=== PATIENT | female | born 1950 | race African-American/Black ===

== ENCOUNTER 2024-11-20 17:31 | Inpatient (IN) | payer BC, MEDICAID, MEDICARE ==
[~2024-11-20] VITALS: Ht 167.6 cm; Wt 146.1 kg
[2024-11-20 19:40] LABS: BASOPHILS % 0.6 % (0.0-2.0); EOSINOPHILS % 5.7 % (0.0-5.0); HEMATOCRIT. 36.9 % (36.0-48.0); HEMOGLOBIN. 10.6 g/dL (12.0-16.0); LYMPHOCYTES % 16.9 % (20.0-50.0); MEAN PLATELET VOLUME 8.1 fl (7.4-10.4); MONOCYTES % 3.5 % (2.0-8.0); NEUTROPHILS % 73.3 % (40.0-76.0); PLATELET 346 x1000/uL (130-400); RED BLOOD CELL COUNT 4.48 mill/uL (4.2-5.4); RED CELL DISTRIBUTION WIDTH 22.7 % (11.6-14.6)
[2024-11-20 19:43] LABS: ADD RBC MORPHOLOGY YES
[2024-11-20 19:49] LABS: INR 1.0
[2024-11-20 19:54] LABS: CREATININE 1.0 mg/dL (0.6-1.0)
[2024-11-20 19:55] LABS: UREA NITROGEN BLOOD 20 mg/dL (9-23)
[2024-11-20 19:56] LABS: ASPARTATE AMINOTRANSFERASE 16 IU/L (<34); BILIRUBIN DIRECT 0.1 mg/dL (<=3.0); TROPONIN I HIGH SENSITIVITY 17 ng/L (3.0-34)
[2024-11-20 19:57] LABS: BILIRUBIN TOTAL 0.4 mg/dL (0.1-1.0); PROTEIN TOTAL 6.4 g/dL (6.0-8.3)
[2024-11-20 20:00] LABS: PLATELET ESTIMATE NORMAL
[2024-11-20] MEDS: CEFTRIAXONE 1GM/50ML 50 ML IV ONE (20:00)
[2024-11-20] MEDS: AZITHROMYCIN 500MG/250ML 250 ML IV SCH (20:00)
[2024-11-20] MEDS ORDERED: AZITHROMYCIN 500MG/250ML 250 ML IV SCH (20:00)
[2024-11-20] MEDS: AZITHROMYCIN 500 MG TABLET PO ONE (23:22)
[2024-11-20] MEDS: CEFTRIAXONE SODIUM 1G VIAL IM ONE (23:22)
[2024-11-21] VITALS (9 sets, daily range): BP systolic 100–129; BP diastolic 33–53; PULSE 62–88; RESP 16–20; TEMP 36.2–36.8; O2SAT 98–100
[2024-11-21] MEDS ORDERED: ONDANSETRON HCL 4MG/2ML INJ IV PRN
[2024-11-21] MEDS ORDERED: MAGNESIUM/ALUMINUM HYDROXIDE/SIMETHICONE 30ML UDC PO PRN
[2024-11-21] MEDS: SODIUM CHLORIDE 0.9% 1,000 ML IV SCH
[2024-11-21] MEDS ORDERED: HYDROCODONE/ACETAMINOPHEN 5/325MG TABLET PO PRN
[2024-11-21] MEDS ORDERED: ZOLPIDEM TARTRATE 5MG TABLET PO PRN
[2024-11-21] MEDS ORDERED: GUAIFENESIN 200MG/10ML SUGAR FREE UDC PO PRN
[2024-11-21] MEDS ORDERED: NALOXONE HCL 0.4MG/ML VIAL IV PRN (00:30)
[2024-11-21] MEDS: LEVOFLOXACIN 750MG PREMIX 150 ML IV SCH ×2 (02:00→15:00)
[2024-11-21 04:56] LABS: *AMPHETAMINES SCREEN URINE NEGATIVE (NEGATIVE); *BARBITURATES SCREEN URINE NEGATIVE (NEGATIVE); *BENZODIAZEPINES SCREEN URINE NEGATIVE (NEGATIVE); *COCAINE SCREEN URINE NEGATIVE (NEGATIVE); CANNABINOID URINE SCREEN NEGATIVE (NEGATIVE); ECSTASY MDMA SCREEN URINE NEGATIVE (NEGATIVE); METHADONE URINE SCREEN NEGATIVE (NEGATIVE); OPIATES URINE SCREEN NEGATIVE (NEGATIVE); PHENCYCLIDINE URINE SCREEN NEGATIVE (NEGATIVE)
[2024-11-21 04:59] LABS: CLARITY URINE TURBID (CLEAR); COLOR URINE ORANGE (YELLOW)
[2024-11-21 05:00] LABS: GLUCOSE URINE NEGATIVE (NEGATIVE); KETONES URINE NEGATIVE (NEGATIVE); LEUKOCYTE ESTERASE URINE 3+ (NEGATIVE); NITRITE URINE NEGATIVE (NEGATIVE); OCCULT BLOOD URINE 2+ (NEGATIVE); PH URINE >=9.0 (4.5-8.0); PROTEIN URINE 2+ (NEGATIVE); SPECIFIC GRAVITY URINE 1.013 (1.005-1.030); UROBILINOGEN URINE 0.2 E.U./dL (0.2-1.0)
[2024-11-21] MEDS ORDERED: AMLO10TA80 PO (05:01)
[2024-11-21] MEDS ORDERED: HYDR25TA78 PO (05:01)
[2024-11-21] MEDS ORDERED: LASIX PO (05:01)
[2024-11-21 05:08] LABS: SQUAMOUS EPITHELIAL CELL URINE 3+ /lpf (RARE/1+)
[2024-11-21 05:10] LABS: BACTERIA URINE 4+; TRIPLE PHOSPHATE CRYSTAL URINE 2+ /lpf
[2024-11-21 07:07] LABS: TROPONIN I HIGH SENSITIVITY 16 ng/L (3.0-34)
[2024-11-21] MEDS: IPRATROPIUM/ALBUTEROL 0.5-3(2.5)MG/3ML NEB NEB SCH (10:28)
[2024-11-21] MEDS: LIDOCAINE HCL 1% 10 MG/ML 10ML VIAL ONE (10:37)
[2024-11-21] MEDS: ACETAMINOPHEN 325MG TABLET PO PRN (10:38)
[2024-11-21] MEDS: ENOXAPARIN 40MG/0.4ML SYR SUBCUT SCH (10:41)
[2024-11-21] MEDS: PANTOPRAZOLE SODIUM 40 MG/VIAL IV SCH (10:46)
[2024-11-21] MEDS: DEXTROSE 50% WATER 50ML SYRINGE IV ONE (14:31)
[2024-11-21] MEDS: DEXTROSE 50% WATER 50ML SYRINGE IV SCH (14:45)
[2024-11-21] MEDS: FUROSEMIDE 40MG/4ML VIAL IVP SCH (15:06)
[2024-11-21 16:07] LABS: BG BASE EXCESS 1.3 mmol/L (-2.0-3.0); BG CARBOXYHEMOGLOBIN 1.0 % (0.5-1.5); BG DEOXYHEMOGLOBIN 7.0 % (0.0-5.0); BG FLOW(L/min) 2.00 L/min; BG FRACTION INSPIRED OXYGEN 28; BG HCO3 ACT 31.0 mmol/L (21.0-28.0); BG METHEMOGLOBIN 0.3 % (0.5-1.5); BG OXYGEN SATURATION 92.9 % (94.0-98.0); BG OXYHEMOGLOBIN 91.7 % (94.0-98.0); BG PCO2 82.1 mmHg (32.0-45.0); BG PH 7.195 (7.350-7.450); BG PO2 70.0 mmHg (83.0-108.0); BG SAMPLE SITE RIGHT BRACHIAL; BG TOTAL HEMOGLOBIN 10.7 g/dL (12.0-16.0); BG VENT MODE NASAL CANNULA
[2024-11-21] MEDS: METHYLPREDNISOLONE SOD SUCC 40MG/ML (ACT-O-VIAL) IV SCH (17:16)
[2024-11-21 19:07] LABS: TROPONIN I HIGH SENSITIVITY 15 ng/L (3.0-34)
[2024-11-22] VITALS (11 sets, daily range): BP systolic 125–197; BP diastolic 33–48; PULSE 70–94; RESP 16–20; TEMP 36–37; O2SAT 88–99
[2024-11-22 12:52] LABS: PLATELET 339 x1000/uL (130-400); RED BLOOD CELL COUNT 4.02 mill/uL (4.2-5.4); RED CELL DISTRIBUTION WIDTH 21.6 % (11.6-14.6)
[2024-11-22 13:11] LABS: CREATININE 1.1 mg/dL (0.6-1.0); UREA NITROGEN BLOOD 30.0 mg/dL (9-23)
[2024-11-22 22:19] LABS: HEMATOCRIT. 30.5 % (36.0-48.0); HEMOGLOBIN. 9.2 g/dL (12.0-16.0); MEAN PLATELET VOLUME 8.1 fl (7.4-10.4); PLATELET 356 x1000/uL (130-400); RED BLOOD CELL COUNT 3.90 mill/uL (4.2-5.4); RED CELL DISTRIBUTION WIDTH 22.0 % (11.6-14.6)
[2024-11-22 22:28] LABS: INR 1.0
[2024-11-22 22:35] LABS: CREATININE 1.1 mg/dL (0.6-1.0); UREA NITROGEN BLOOD 29 mg/dL (9-23)
[2024-11-22 22:37] LABS: BILIRUBIN DIRECT < 0.1 mg/dL (<=3.0)
[2024-11-22 22:38] LABS: BILIRUBIN TOTAL 0.3 mg/dL (0.1-1.0); PHOSPHORUS 2.6 mg/dL (2.5-4.9); PROTEIN TOTAL 5.5 g/dL (6.0-8.3)
[2024-11-22 22:44] LABS: LYMPHOCYTES % MANUAL 10.0 % (20.0-60.0); MONOCYTES % MANUAL 1.0 % (2.0-8.0); NEUTROPHILS % MANUAL 89.0 % (45.0-75.0); PLATELET ESTIMATE NORMAL
[2024-11-22 22:46] LABS: ASPARTATE AMINOTRANSFERASE < 8 IU/L (<34)
[2024-11-23] VITALS (10 sets, daily range): BP systolic 127–184; BP diastolic 33–53; PULSE 74–92; RESP 16–20; TEMP 36.3–36.6; O2SAT 94–100
[2024-11-23] MEDS: CLONIDINE 0.1MG TABLET PO PRN (05:14)
[2024-11-23] MEDS: LEVOFLOXACIN 250MG TABLET PO SCH (11:30)
[2024-11-23 18:02] LABS: HEMATOCRIT. 30.8 % (36.0-48.0); HEMOGLOBIN. 9.4 g/dL (12.0-16.0); MEAN PLATELET VOLUME 7.9 fl (7.4-10.4); PLATELET 342 x1000/uL (130-400); RED BLOOD CELL COUNT 3.90 mill/uL (4.2-5.4); RED CELL DISTRIBUTION WIDTH 22.2 % (11.6-14.6)
[2024-11-23 18:05] LABS: CREATININE 1.1 mg/dL (0.6-1.0)
[2024-11-23 18:06] LABS: UREA NITROGEN BLOOD 31.0 mg/dL (9-23)
[2024-11-23 22:24] LABS: LYMPHOCYTES % MANUAL 7.0 % (20.0-60.0); MONOCYTES % MANUAL 4.0 % (2.0-8.0); NEUTROPHILS % MANUAL 89.0 % (45.0-75.0); PLATELET ESTIMATE NORMAL
[2024-11-24] VITALS (10 sets, daily range): BP systolic 116–149; BP diastolic 24–61; PULSE 74–90; RESP 15–21; TEMP 36.1–36.9; O2SAT 92–99
[2024-11-24 11:00] LABS: BG BASE EXCESS 2.5 mmol/L (-2.0-3.0); BG CARBOXYHEMOGLOBIN 0.6 % (0.5-1.5); BG DEOXYHEMOGLOBIN 3.2 % (0.0-5.0); BG FLOW(L/min) 2.00 L/min; BG FRACTION INSPIRED OXYGEN 28; BG HCO3 ACT 29.8 mmol/L (21.0-28.0); BG METHEMOGLOBIN 0.3 % (0.5-1.5); BG OXYGEN SATURATION 96.8 % (94.0-98.0); BG OXYHEMOGLOBIN 95.9 % (94.0-98.0); BG PCO2 60.8 mmHg (32.0-45.0); BG PH 7.308 (7.350-7.450); BG PO2 88.5 mmHg (83.0-108.0); BG SAMPLE SITE RIGHT RADIAL; BG TOTAL HEMOGLOBIN 10.5 g/dL (12.0-16.0); BG VENT MODE NASAL CANNULA
[2024-11-24 17:17] LABS: HEMATOCRIT. 30.7 % (36.0-48.0); HEMOGLOBIN. 9.2 g/dL (12.0-16.0); MEAN PLATELET VOLUME 7.9 fl (7.4-10.4); PLATELET 318 x1000/uL (130-400); RED BLOOD CELL COUNT 3.89 mill/uL (4.2-5.4); RED CELL DISTRIBUTION WIDTH 21.8 % (11.6-14.6)
[2024-11-24 17:38] LABS: CREATININE 1.3 mg/dL (0.6-1.0); UREA NITROGEN BLOOD 37 mg/dL (9-23)
[2024-11-24 17:40] LABS: ASPARTATE AMINOTRANSFERASE 8 IU/L (<34); BILIRUBIN TOTAL 0.2 mg/dL (0.1-1.0); PROTEIN TOTAL 5.4 g/dL (6.0-8.3)
[2024-11-24 18:07] LABS: LYMPHOCYTES % MANUAL 4.0 % (20.0-60.0); MONOCYTES % MANUAL 4.0 % (2.0-8.0); NEUTROPHILS % MANUAL 92.0 % (45.0-75.0); PLATELET ESTIMATE NORMAL
[2024-11-25] VITALS (11 sets, daily range): BP systolic 130–164; BP diastolic 33–80; PULSE 70–91; RESP 18–20; TEMP 36.4–37.1; O2SAT 95–98
[2024-11-25 08:26] LABS: HEMATOCRIT. 30.8 % (36.0-48.0); HEMOGLOBIN. 9.4 g/dL (12.0-16.0); MEAN PLATELET VOLUME 8.0 fl (7.4-10.4); PLATELET 282 x1000/uL (130-400); RED BLOOD CELL COUNT 3.90 mill/uL (4.2-5.4); RED CELL DISTRIBUTION WIDTH 22.0 % (11.6-14.6)
[2024-11-25 08:48] LABS: CREATININE 1.2 mg/dL (0.6-1.0)
[2024-11-25 08:49] LABS: UREA NITROGEN BLOOD 41.0 mg/dL (9-23)
[2024-11-25 09:53] LABS: BG BASE EXCESS 4.4 mmol/L (-2.0-3.0); BG CARBOXYHEMOGLOBIN 0.7 % (0.5-1.5); BG DEOXYHEMOGLOBIN 3.1 % (0.0-5.0); BG FLOW(L/min) 3.00 L/min; BG FRACTION INSPIRED OXYGEN 32; BG HCO3 ACT 33.1 mmol/L (21.0-28.0); BG METHEMOGLOBIN 0.3 % (0.5-1.5); BG OXYGEN SATURATION 96.9 % (94.0-98.0); BG OXYHEMOGLOBIN 95.9 % (94.0-98.0); BG PCO2 73.3 mmHg (32.0-45.0); BG PH 7.272 (7.350-7.450); BG PO2 89.2 mmHg (83.0-108.0); BG SAMPLE SITE LEFT RADIAL; BG TOTAL HEMOGLOBIN 11.0 g/dL (12.0-16.0); BG VENT MODE NASAL CANNULA
[2024-11-25] MEDS: FUROSEMIDE 40MG/4ML VIAL IVP SCH (10:41)
[2024-11-25 14:28] LABS: BAND% 2.0 % (1.0-6.0); LYMPHOCYTES % MANUAL 8.0 % (20.0-60.0); MONOCYTES % MANUAL 4.0 % (2.0-8.0); NEUTROPHILS % MANUAL 86.0 % (45.0-75.0); PLATELET ESTIMATE NORMAL
[2024-11-26] VITALS (8 sets, daily range): BP systolic 135–156; BP diastolic 30–42; PULSE 76–98; RESP 18–20; TEMP 36.1–37.1; O2SAT 96–100
[2024-11-26 07:50] LABS: HEMATOCRIT. 31.8 % (36.0-48.0); HEMOGLOBIN. 9.5 g/dL (12.0-16.0); MEAN PLATELET VOLUME 8.1 fl (7.4-10.4); PLATELET 289 x1000/uL (130-400); RED BLOOD CELL COUNT 3.97 mill/uL (4.2-5.4); RED CELL DISTRIBUTION WIDTH 21.9 % (11.6-14.6)
[2024-11-26 07:54] LABS: CREATININE 1.1 mg/dL (0.6-1.0); UREA NITROGEN BLOOD 40.0 mg/dL (9-23)
[2024-11-26 08:53] LABS: BG BASE EXCESS 1.8 mmol/L (-2.0-3.0); BG CARBOXYHEMOGLOBIN 0.4 % (0.5-1.5); BG DEOXYHEMOGLOBIN 3.2 % (0.0-5.0); BG FLOW(L/min) 3.00 L/min; BG FRACTION INSPIRED OXYGEN 32; BG HCO3 ACT 28.5 mmol/L (21.0-28.0); BG METHEMOGLOBIN 0.3 % (0.5-1.5); BG OXYGEN SATURATION 96.8 % (94.0-98.0); BG OXYHEMOGLOBIN 96.1 % (94.0-98.0); BG PCO2 55.3 mmHg (32.0-45.0); BG PH 7.330 (7.350-7.450); BG PO2 87.5 mmHg (83.0-108.0); BG SAMPLE SITE LEFT RADIAL; BG TOTAL HEMOGLOBIN 10.6 g/dL (12.0-16.0); BG VENT MODE NASAL CANNULA
[2024-11-26 14:17] LABS: BAND% 3.0 % (1.0-6.0); LYMPHOCYTES % MANUAL 10.0 % (20.0-60.0); MONOCYTES % MANUAL 3.0 % (2.0-8.0); NEUTROPHILS % MANUAL 84.0 % (45.0-75.0); PLATELET ESTIMATE NORMAL
[2024-11-26] MEDS: PNEUMOCOCCAL 20-VAL CONJ-DIP CRM 0.5ML IM ONE (16:41)
[2024-11-27] VITALS (7 sets, daily range): BP systolic 144–167; BP diastolic 36–57; PULSE 75–80; RESP 18–20; TEMP 36–37.1; O2SAT 95–98
[2024-11-28] VITALS (7 sets, daily range): BP systolic 140–166; BP diastolic 44–62; PULSE 71–85; RESP 18–20; TEMP 35.9–37; O2SAT 97–100
[2024-11-28] MEDS: MULTIVITAMINS,THER W-MINERALS TABLET PO SCH (08:58)
[2024-11-28 09:59] LABS: BG SAMPLE SITE LEFT RADIAL
[2024-11-28 10:00] LABS: BG FRACTION INSPIRED OXYGEN 32; BG VENT MODE CANNULA
[2024-11-28 10:01] LABS: BG BASE EXCESS 1.8 mmol/L (-2.0-3.0); BG HCO3 ACT 31.4 mmol/L (21.0-28.0); BG OXYGEN SATURATION 95.1 % (94.0-98.0); BG PCO2 79.5 mmHg (32.0-45.0); BG PH 7.215 (7.350-7.450); BG PO2 76.6 mmHg (83.0-108.0); BG TOTAL HEMOGLOBIN 11.6 g/dL (12.0-16.0)
[2024-11-28 10:02] LABS: BG CARBOXYHEMOGLOBIN 0.6 % (0.5-1.5); BG DEOXYHEMOGLOBIN 4.9 % (0.0-5.0); BG METHEMOGLOBIN 0.0 % (0.5-1.5); BG OXYHEMOGLOBIN 94.5 % (94.0-98.0)
[2024-11-28 14:59] LABS: BG FLOW(L/min) 3.00 L/min
[2024-11-29] VITALS (7 sets, daily range): BP systolic 139–185; BP diastolic 38–46; PULSE 76–91; RESP 17–20; TEMP 36.3–37.1; O2SAT 95–99
[2024-11-30] VITALS (7 sets, daily range): BP systolic 132–177; BP diastolic 27–51; PULSE 75–86; RESP 17–20; TEMP 35.6–36.9; O2SAT 96–100
[2024-11-30] MEDS: HYDRALAZINE 10 MG in SODIUM CHLORIDE 0.9% 49.5 ML IV PRN (00:50)
[2024-12-01] VITALS: BP 197/57; PULSE 87; RESP 20; TEMP 36.2; O2SAT 97
[2024-12-01 04:00] VITALS: BP 136/52; PULSE 85; RESP 20; TEMP 36.4; O2SAT 99
[2024-12-01 08:00] VITALS: BP 193/54; PULSE 86; RESP 18; TEMP 36.9; O2SAT 99
[2024-12-01 12:00] VITALS: BP 186/46; PULSE 78; RESP 17; TEMP 36.5; O2SAT 99
[2024-12-01 18:05] VITALS: BP 175/49; PULSE 78; RESP 18; TEMP 36.6; O2SAT 97
[2024-12-01 20:00] VITALS: BP 186/54; PULSE 78; RESP 18; TEMP 36.2; O2SAT 100
[2024-12-02] VITALS: BP 118/64; PULSE 82; RESP 20; TEMP 35.9; O2SAT 100
[2024-12-02 04:00] VITALS: BP 158/45; PULSE 76; RESP 20; TEMP 36.6; O2SAT 100
[2024-12-02 08:00] VITALS: BP 165/52; PULSE 70; RESP 18; TEMP 36.3; O2SAT 100
[2024-12-02 12:00] VITALS: BP 141/69; PULSE 67; RESP 18; TEMP 36.4; O2SAT 100
[2024-12-02 16:00] VITALS: BP 169/54; PULSE 72; RESP 18; TEMP 36.4; O2SAT 98
[2024-12-03] VITALS: BP 165/45; PULSE 81; RESP 20; TEMP 35.8; O2SAT 99
[2024-12-03 04:00] VITALS: BP 183/50; PULSE 77; RESP 19; TEMP 35.6; O2SAT 100
[2024-12-03 08:00] VITALS: BP 127/54; PULSE 83; RESP 18; TEMP 35.8; O2SAT 100
[2024-12-03 12:00] VITALS: BP 135/60; PULSE 80; RESP 18; TEMP 35.7; O2SAT 100
[2024-12-03 16:00] VITALS: BP 140/65; PULSE 79; RESP 18; TEMP 35.8; O2SAT 100
[2024-12-03 20:00] VITALS: BP 168/55; PULSE 83; RESP 18; TEMP 36.7; O2SAT 98
[2024-12-04] VITALS: BP 169/54; PULSE 78; RESP 18; TEMP 36.9; O2SAT 98
[2024-12-04] MEDS: CLONIDINE 0.1MG TABLET PO NR (03:07)
[2024-12-04 04:00] VITALS: BP 172/67; PULSE 81; RESP 18; TEMP 37.1; O2SAT 99
[2024-12-04 08:00] VITALS: BP 101/50; PULSE 69; RESP 18; TEMP 36.5; O2SAT 98
[2024-12-04 12:00] VITALS: BP 146/41; PULSE 68; RESP 18; TEMP 36.4; O2SAT 97
[2024-12-04 16:00] VITALS: BP 165/38; PULSE 66; RESP 20; TEMP 35.9; O2SAT 98
[2024-12-04 20:00] VITALS: BP 158/66; PULSE 58; RESP 19; TEMP 35.7; O2SAT 100
[2024-12-05] VITALS: BP 141/48; PULSE 74; RESP 19; TEMP 36.6; O2SAT 100
[2024-12-05 04:00] VITALS: BP 149/48; PULSE 75; RESP 19; TEMP 36.5; O2SAT 100
[2024-12-05 08:00] VITALS: BP 174/46; PULSE 71; RESP 19; TEMP 36.6; O2SAT 95
[2024-12-05 12:00] VITALS: BP 168/49; PULSE 70; RESP 18; TEMP 36.4; O2SAT 99
[2024-12-05 16:00] VITALS: BP 168/48; PULSE 72; RESP 19; TEMP 36.1; O2SAT 97
[2024-12-06] VITALS: BP 165/51; PULSE 76; RESP 20; TEMP 36.5; O2SAT 99
[2024-12-06 04:00] VITALS: BP 172/46; PULSE 87; RESP 20; TEMP 36; O2SAT 99
[2024-12-06 08:00] VITALS: BP 147/40; PULSE 69; RESP 17; TEMP 36.9; O2SAT 95
[2024-12-06 12:00] VITALS: BP 149/47; PULSE 69; RESP 17; TEMP 36.9; O2SAT 96
[2024-12-06 16:00] VITALS: BP 165/41; PULSE 80; RESP 18; TEMP 36.9
[2024-12-06 20:00] VITALS: BP 143/40; PULSE 75; RESP 18; TEMP 36.2; O2SAT 100
[2024-12-07] VITALS (7 sets, daily range): BP systolic 153–169; BP diastolic 41–48; PULSE 65–85; RESP 17–18; TEMP 36.2–36.7; O2SAT 95–100
== END 2024-12-07 23:37 | disposition home health service (06) | DRG 291 ==
LOC: ER 17:31 → 7WST 20:52 → EDBEDREQTM 21:07 → EDBEDREQ 21:07 → ENRESERV 21:51 → 7EST 11-29 19:55
PROVIDERS: ADMIT Internal Medicine; ATTEND Internal Medicine
PROC: 5A0935A Assistance with Respiratory Ventilation, Less than 24 Consecutive Hours, High Flow/Velocity Cannula (ICD-10-PCS; principal; 2024-11-20)
PROC: 05H633Z Insertion of Infusion Device into Left Subclavian Vein, Percutaneous Approach (ICD-10-PCS; 2024-11-21)
PROC: B547ZZA Ultrasonography of Left Subclavian Vein, Guidance (ICD-10-PCS; 2024-11-21)
PROC: 5A09357 Assistance with Respiratory Ventilation, Less than 24 Consecutive Hours, Continuous Positive Airway Pressure (ICD-10-PCS; 2024-11-25)
DX: I13.0 Hypertensive heart and chronic kidney disease with heart failure and stage 1 through stage 4 chronic kidney disease, or unspecified chronic kidney disease (principal); I50.43 Acute on chronic combined systolic (congestive) and diastolic (congestive) heart failure; L89.154 Pressure ulcer of sacral region, stage 4; L89.224 Pressure ulcer of left hip, stage 4; L89.214 Pressure ulcer of right hip, stage 4; L89.524 Pressure ulcer of left ankle, stage 4; L89.514 Pressure ulcer of right ankle, stage 4; J96.21 Acute and chronic respiratory failure with hypoxia; J44.1 Chronic obstructive pulmonary disease with (acute) exacerbation; N39.0 Urinary tract infection, site not specified; G82.20 Paraplegia, unspecified; E66.2 Morbid (severe) obesity with alveolar hypoventilation; E87.29 Other acidosis; E11.22 Type 2 diabetes mellitus with diabetic chronic kidney disease; N18.9 Chronic kidney disease, unspecified; E78.5 Hyperlipidemia, unspecified; Z88.0 Allergy status to penicillin; Z87.891 Personal history of nicotine dependence; Z99.81 Dependence on supplemental oxygen; Z91.199 Patient's noncompliance with other medical treatment and regimen due to unspecified reason; Z74.01 Bed confinement status
CPT/HCPCS: 36415; 36573; 36600; 71045; 74176; 76700; 80048; 80053; 80076; 80305; 81003; 82375; 82805; 82962; 83735; 83880; 84100; 84484; 85025; 85027; 90732; 93005; 93306; 93970; 94070; 94640; 94660; 94664; 97162; 99285; A4606; C1725; J0360; J0456; J0696; J1650; J1938; J1956; J2003; J2470; J2919